=== PATIENT | male | born 1945 | race Caucasian/White ===

== ENCOUNTER 2019-08-12 14:25 | Emergency (ER) | payer MEDICARE, OTHER, SELFPAY ==
[2019-08-12 14:40] VITALS: BP 169/86; PULSE 88; RESP 16; TEMP 36.6; O2SAT 97
[2019-08-12 14:57] LABS: Basophils Percent Auto 0.4 % (0.2-1.2); Eosinophils Absolute Auto 0.1 K/mm3 (0-0.3); Eosinophils Percent Auto 1.5 % (0-4.4); Hematocrit 38.3 % (42.0-52.0); Immature Granulocyte Absolute 0.03 K/mm3 (0.00-0.031); Immature Granulocyte Percent A 0.4 % (0-0.5); Lymphocytes Absolute Auto 2.11 K/mm3 (0.9-3.2); Lymphocytes Percent Auto 27.1 % (18.3-44.2); Mean Corpuscular HGB Conc 33.9 g/dl (32-36); Mean Corpuscular Hemoglobin 31.9 pg (26-34); Mean Corpuscular Volume 93.9 fl (80-100); Mean Platelet Volume 9.5 fl (7.4-10.4); Monocytes Absolute Auto 0.7 K/mm3 (0.1-0.6); Monocytes Percent Auto 8.4 % (2.6-8.5); Neutrophils Absolute Auto 4.8 K/mm3 (1.3-6.7); Neutrophils Percent Auto 62.2 % (45.5-73.1); Platelet Count Result 287 k/mm3 (150-375); Red Blood Count 4.08 M/mm3 (4.6-6.20); Red Cell Distribution Width 12.4 % (11.5-14.5); White Blood Count 7.8 K/mm3 (4.5-10.0)
[2019-08-12 15:14] LABS: Alanine Aminotransferase 20 U/L (4-50); Albumin Level 4.6 g/dL (3.5-5.1); Alkaline Phosphatase 110 U/L (38-126); Aspartate Amino Transferase 26 U/L (17-59); Bilirubin,Total 0.3 mg/dL (0.2-1.3); Blood Urea Nitrogen 42 mg/dL (9-20); Calcium 10.1 mg/dL (8.4-10.2); Carbon Dioxide 21 mmol/L (22-30); Chloride 105 mmol/L (98-107); Estimated CRCL calculation 35 ml/min; Estimated Glomerular Filt Rate 43; Glucose 113 mg/dL (75-110); Potassium 5.1 mmol/L (3.4-5.0); Sodium 136 mmol/L (137-145)
--- NOTE | 2019-08-12 15:44 | ED.GENADULT ---
HPI - General Adult General Chief complaint: Unspecified Stated complaint: neck pain/dizziness w/standing [id number] Time Seen by Provider: 08/12/19 15:32 History of Present Illness HPI narrative: Pain in the back of the neck radiating into the head for at least 1 month. Told that he had arthritis. Not getting any better. tired to see his PCP, but they are not takig appointments right now. Additionally c/o light headedness when he bends over then stands up agian. No syncope. No chest pain, no alpitations. Related Data Allergies Allergy/AdvReac Type Severity Reaction Status Date / Time No Known Drug Allergies Allergy Verified 09/30/12 12:10 Review of Systems Review of Systems: All systems reviewed & are unremarkable except as noted in HPI and below Constitutional: Constitutional: Denies fever(s) Cardiovascular: Cardiovascular: Denies chest pain Respiratory: Respiratory: Denies dyspnea Gastrointestinal: Gastrointestinal: Denies abdominal pain, Denies nausea and Denies vomiting Musculoskeletal: Musculoskeletal: Denies back pain Neurologic: Reports dizziness, Denies syncope, Reports headache(s), Denies numbness and Denies weakness Exam Const: General: healthy appearing, no acute distress and alert Orientation/consciousness: patient oriented x3 HENMT: Head: normal to inspection Neck: Neck: normal visual inspection and no lymphadenopathy Chest: Chest palpation & inspection: no tenderness Resp: Effort & Inspection: normal respiratory effort Auscultation: clear to auscultation bilaterally, no rales, no rhonchi and no wheezes Cardio: Jugular venous distension: no JVD Rate: regular rate Rhythm: regular rhythm Heart sounds: no murmurs GI: Inspection: non-distended GI Palp: Yes Soft to palpation and No Tenderness to palpation present (GI) Skin: General skin exam: normal color Neuro: General: patient oriented x3 and moves all extremities Speech: normal speech Extrem: General: no edema Psych: Appearance: well kempt Affect: normal affect Course Vital Signs Vital signs: Vital Signs Temperature 36.6 C 08/12/19 14:40 Pulse Rate 88 08/12/19 14:40 Respiratory Rate 16 08/12/19 14:40 Blood Pressure 169/86 H 08/12/19 14:40 Pulse Oximetry 97 08/12/19 14:40 Temperature 36.6 C 08/12/19 14:40 Pulse Rate 71 08/12/19 17:16 Respiratory Rate 19 08/12/19 17:16 Blood Pressure 143/65 H 08/12/19 17:16 Pulse Oximetry 100 08/12/19 17:16 Medical Decision Making MDM Narrative Medical decision making narrative: Creatine elevated. could support dehydration as a cause of dizziness. Orthostatics normal. Will start on flexeril for neck pain and have him follow-up Medical Records Medical records reviewed: Yes I reviewed the patient's medical records. Vital Signs Vital Signs: Vital Signs Temperature 36.6 C 08/12/19 14:40 Pulse Rate 88 08/12/19 14:40 Respiratory Rate 16 08/12/19 14:40 Blood Pressure 169/86 H 08/12/19 14:40 Pulse Oximetry 97 08/12/19 14:40 Temperature 36.6 C 08/12/19 14:40 Pulse Rate 71 08/12/19 17:16 Respiratory Rate 19 08/12/19 17:16 Blood Pressure 143/65 H 08/12/19 17:16 Pulse Oximetry 100 08/12/19 17:16 Lab Data Lab results reviewed: Yes I reviewed the patient's lab results. Result diagrams: 08/12/19 14:50 08/12/19 14:50 Labs: Lab Results 08/12/19 08/12/19 08/12/19 Range/Units 14:50 14:50 17:12 WBC 7.8 (4.5-10.0) K/mm3 RBC 4.08 L (4.6-6.20) M/mm3 Hgb 13.0 L (14.0-18.0) g/dL Hct 38.3 L (42.0-52.0) % MCV 93.9 (80-100) fl MCH 31.9 (26-34) pg MCHC 33.9 (32-36) g/dl RDW 12.4 (11.5-14.5) % Plt Count 287 (150-375) k/mm3 MPV 9.5 (7.4-10.4) fl Immature Gran % (Auto) 0.4 (0-0.5) % Neut % (Auto) 62.2 (45.5-73.1) % Lymph % (Auto) 27.1 (18.3-44.2) % Crosby % (Auto) 8.4 (2.6-8.5) % Eos % (Auto) 1.5 (0-4.4) % Baso % (Auto) 0.4 (0.2-1.
[2019-08-12 15:46] VITALS: BP 161/84; PULSE 68; PULSE 84; RESP 18; O2SAT 98
[2019-08-12 15:47] VITALS: BP 150/86; BP 161/84; BP 184/79; PULSE 74; PULSE 78; PULSE 82
[2019-08-12 17:16] VITALS: BP 143/65; PULSE 71; RESP 19; O2SAT 100
[2019-08-12 17:27] LABS: Add Urine Microscopic? YES; Appearance Urine Clear (Clear); Bacteria Urine Trace /hpf; Bilirubin Urine Negative (Negative); Blood Urine Negative (Negative); Color Urine Yellow (Yellow); Glucose Urine UA Negative (Negative); Ketones Urine Negative (Negative); Leukocyte Esterase Ur Negative LEU/UL (Negative); Mucus Urine Rare /lpf; Nitrate Urine Negative (Negative); Protein Urine 2+ mg/dL (Negative); Specific Grav Ur 1.018 (1.001-1.035); Squamous Epithelial Cell Urine Rare /hpf (Few); Urobilinogen Urine Negative mg/dL (<2.0); WBC Urine 0-3 /hpf
== END 2019-08-12 17:33 | disposition home or self-care (01) ==
PROVIDERS: Emergency Provider Emergency Medicine
DX: M54.2 Cervicalgia (principal); R55 Syncope and collapse
CPT/HCPCS: 36415; 80053; 81001; 85025; 99283

== ENCOUNTER 2019-12-27 14:16 | Emergency (ER) | payer OTHER, MEDICARE, SELFPAY ==
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
[2019-12-27 14:18] VITALS: BP 125/56; PULSE 89; RESP 18; TEMP 35.6; O2SAT 98
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
== END 2019-12-27 17:02 | disposition home or self-care (01) ==
PROVIDERS: Emergency Provider Emergency Medicine
DX: S16.1XXA Strain of muscle, fascia and tendon at neck level, initial encounter (principal); S20.213A Contusion of bilateral front wall of thorax, initial encounter; M47.812 Spondylosis without myelopathy or radiculopathy, cervical region; E11.9 Type 2 diabetes mellitus without complications; V49.40XA Driver injured in collision with unspecified motor vehicles in traffic accident, initial encounter
CPT/HCPCS: 71046; 71120; 72125; 99284

== ENCOUNTER 2021-11-15 16:52 | Observation (INO) | payer MEDICARE, OTHER, SELFPAY ==
[2021-11-15] VITALS (8 sets, daily range): BP systolic 130–153; BP diastolic 67–82; PULSE 65–94; RESP 16–18; TEMP 36.1–36.8; O2SAT 97–100; BMI 27.1
--- NOTE | ~2021-11-15 | XR_ITS ---
EXAMINATION: XR chest 2V DATE: 11/15/2021 18:06 INDICATION: Chest pain TECHNIQUE: PA and lateral views of the chest were obtained. COMPARISON: Chest radiograph dated 01/06/2020 FINDINGS: Calcified nodules at the left upper and right lower lung zones. No other airspace opacities, pulmonar y edema, pleural effusion or pneumothorax. The cardiomediastinal silhouette is normal. Mild thoracic spondylosis. IMPRESSION: 1. No acute cardiopulmonary disease. Reviewed, dictated and finalized at location A.
--- NOTE | ~2021-11-15 | CT_ITS ---
EXAMINATION: CT brain wo con DATE: 11/15/2021 19:19 INDICATION: Dizziness and vision in the right eye TECHNIQUE: Computed tomography (CT) of the head was performed without intravenous contrast. Sagittal and coronal reconstructions were performed. The mA was adjusted according to patient size. Iterative reconstruction technique was employed. The dose-length product was 605.33 mGy-cm. COMPARISON: None FINDINGS: No acute intracranial hemorrhage, acute infarction or abnormal extra axial fluid collection. There is mild scattered white matter hypoattenuation consistent with chronic small vessel ischemic disease. S ymmetric pattern of distribution and calcific lesions in the bilateral basal ganglia. Symmetric promi nence of the sulci consistent with mild age-appropriate diffuse cerebral volume loss. Ventricles are normal and symmetric. No mass/mass effect. Intracranial calcified cerebral atherosclerosis is noted. The orbits, paranasal sinuses and mastoid air cells are normal. IMPRESSION: 1. No acute intracranial process. 2. Age-related changes including mild diffuse volume loss, mild scattered white matter hypoattenuatio n consistent with chronic small vessel ischemic disease and mild dystrophic calcifications at the lor ateral basal ganglia. Reviewed, dictated and finalized at location A. IMPRESSION: 1. No acute intracranial process. 2. Age-related changes including mild diffuse volume loss, mild scattered white matter hypoattenuation consistent with chronic small vessel ischemic disease a nd mild dystrophic calcifications at the bilateral basal ganglia.
--- NOTE | 2021-11-15 17:08 | ECG_ITS ---
Measurements Intervals [place] Rate: 81 P: 1 AK: 155 QRS: -63 QRSD: 158 T: 6 QT: 383 QTc: 446 Interpretive Statements SINUS RHYTHM ATRIAL PREMATURE COMPLEXES RIGHT BUNDLE BRANCH BLOCK LEFT ANTERIOR FASCICULAR BLOCK BASELINE ARTIFACT- I, AVR, AVL, AVF ABNORMAL ECG NO PREVIOUS ECG AVAILABLE FOR COMPARISON Electronically Signed On 11-15-2021 20:10:44 CDT by Anuj Cornell D.O.
[2021-11-15 17:26] LABS: Basophils Percent Auto 0.3 % (0.2-1.2); Eosinophils Absolute Auto 0.1 K/mm3 (0-0.3); Eosinophils Percent Auto 1.6 % (0-4.4); Hematocrit 32.4 % (42.0-52.0); Hemoglobin 10.8 g/dL (14.0-18.0); Immature Granulocyte Absolute 0.01 K/mm3 (0.00-0.031); Immature Granulocyte Percent A 0.2 % (0-0.5); Lymphocytes Absolute Auto 1.59 K/mm3 (0.9-3.2); Lymphocytes Percent Auto 26.2 % (18.3-44.2); Mean Corpuscular HGB Conc 33.3 g/dl (32-36); Mean Corpuscular Hemoglobin 32.9 pg (26-34); Mean Corpuscular Volume 98.8 fl (80-100); Monocytes Absolute Auto 0.5 K/mm3 (0.1-0.6); Monocytes Percent Auto 7.6 % (2.6-8.5); Neutrophils Absolute Auto 3.9 K/mm3 (1.3-6.7); Neutrophils Percent Auto 64.1 % (45.5-73.1); Platelet Count Result 275 k/mm3 (150-375); Red Blood Count 3.28 M/mm3 (4.6-6.20); Red Cell Distribution Width 12.3 % (11.5-14.5); White Blood Count 6.1 K/mm3 (4.5-10.0)
[2021-11-15 17:33] LABS: Prothrombin Time 12.9 Seconds (11.1-14.7)
[2021-11-15 17:34] LABS: Alanine Aminotransferase 25 U/L (6-50); Albumin Level 4.2 g/dL (3.5-5.1); Alkaline Phosphatase 99 U/L (38-126); Anion Gap 10 mmol/L (8-16); Aspartate Amino Transferase 27 U/L (17-59); Bilirubin,Total 0.3 mg/dL (0.2-1.3); Blood Urea Nitrogen 38 mg/dL (9-20); Calcium 9.4 mg/dL (8.4-10.2); Carbon Dioxide 23 mmol/L (22-30); Chloride 104 mmol/L (98-107); Estimated CRCL calculation 30 ml/min; Estimated Glomerular Filt Rate 37; Glucose 177 mg/dL (65-110); Lipase 82 U/L (23-300); Potassium 4.5 mmol/L (3.4-5.0); Sodium 137 mmol/L (137-145)
[2021-11-15 17:53] LABS: Troponin I < 0.012 ng/mL (0.000-0.034)
--- NOTE | 2021-11-15 19:10 | ED.GENADULT ---
HPI - General Adult General Chief complaint: Unspecified Stated complaint: R EYE BLURRY X WEEKS Time Seen by Provider: 11/15/21 19:06 Source: RN notes reviewed History of Present Illness HPI narrative: Patient presents emergency department from home for blurred vision. Patient states he has had blurred vision in his right eye for approximately 1 month he states he has had blurred vision total for over 14 years in his right eye but is been worse over the past month he states that blurred vision seems to be worse around the time that he eats and improves later on after he is not eating he states that this evening he was watching a TV commercial and he was recently started on his Ozempic and is said that a side effect of the medication could be blurred vision he called his PCP who told him to go to the emergency department for further evaluation the patient states he receives all of his care at the [facility] including seeing an kettle loader at the [place] who he last saw 2 months ago but is not seen over the past months for his blurry vision he states he does have glasses he supposed to wear but has not been wearing his glasses he denies any unilateral numbness or tingling he denies any pain in the right eye he states that he does have blurred vision in the left eye as well but is worse in the right. In review of systems with the patient's he does note that he has had some intermittent chest tightness which she states that he has been having over the past week the pain is located midsternal chest and described as a tightness in nature does not radiate denies any shortness of breath Related Data Home Medications Medication Instructions Recorded Confirmed glipizide 10 mg tablet 10 mg PO BID 11/15/21 lisinopril 10 1 tablet PO DAILY 11/15/21 mg-hydrochlorothiazide 12.5 mg tablet metformin 500 mg tablet 500 mg PO BID 11/15/21 semaglutide 0.25 mg or 0.5 mg (2 0.5 mg subcut WEEKLY 11/15/21 mg/1.5 mL) subcutaneous pen injector (Ozempic) Allergies Allergy/AdvReac Type Severity Reaction Status Date / Time No Known Drug Allergies Allergy Verified 04/19/21 17:00 Review of Systems Review of Systems: Gen.: Denies fevers or chills Eyes: See HPI ENT: Denies congestion Respiratory: Denies shortness of breath or cough CV: Reports chest tightness GI: Denies abdominal pain nausea, emesis or diarrhea Musculoskeletal: Denies back pain or muscle pain Neuro: Denies numbness, tingling, weakness or focal weakness Skin: Denies rash Except as documented, all other systems reviewed and negative [facility] Past Medical History Medical History Diabetes mellitus Social History Social History Smoking status: Never smoker Exam Narrative: APPEARANCE: No acute distress, nontoxic, resting in bed HEENT: Normocephalic, atraumatic, OMM, TMs clear bilaterally EYES: PERRL, EOMI no conjunctival erythema no papilledema NECK: Supple, nontender, full range of motion without pain, no meningismus RESPIRATORY: No respiratory distress, clear to auscultation bilaterally with no rhonchi wheezing or rales CARDIOVASCULAR: RRR s murmur ABDOMINAL: Soft, nontender, nondistended MUSCULOSKELETAL: Moves all extremities. No clubbing, cyanosis or edema. NEURO: A and O ?3, following commands, speech normal, no facial droop,muscle strength 5 out of 5 bilateral upper and lower extremities SKIN:: Warm, dry. Normal Color PSYCHIATRIC: Normal affect/mood Course Course Emergency Course: Discussed with Dr. Dillard presentation work-up agrees with admission Discussed with patient and family results of workup and diagnosis. Discussed need for admission. Patient and family understand and agree to current treatment plan discussed with patient his vision changes need to follow-up with his PCP to discuss possible change in medications Vital Signs Vital signs: Vital Signs Tem
[2021-11-15 20:29] LABS: Troponin I 0.019 ng/mL (0.000-0.034)
[2021-11-15 21:37] LABS: SARS-CoV-2 RNA PCR Negative
[2021-11-15] MEDS: ASPIRIN 81 MG CHEWABLE TABLET 324 MG PO (21:38)
--- NOTE | 2021-11-15 23:17 | ADMGEN ---
This patient, Renaldo Tsang, was admitted to IMU Room 201-01 at 2317. Patient/family oriented to hospital policies and general routines including ID bracelet, bed and alarms, visiting hours, pain management, procedures, bathroom and other care routines, personal items, smoking policy, room service/diet, and visiting hours. Information on how to activate the Rapid Response Team has been discussed. Patient/Family are encouraged to report perceived risks to care and to ask questions if they do not understand what they are told or what they should do.
--- NOTE | 2021-11-15 23:35 | ADMGEN ---
This patient, Renaldo Tsang, was admitted to IMU Room 201-01. Patient/family oriented to hospital policies and general routines including ID bracelet, bed and alarms, visiting hours, pain management, procedures, bathroom and other care routines, personal items, smoking policy, room service/diet, and visiting hours. Information on how to activate the Rapid Response Team has been discussed. Patient/Family are encouraged to report perceived risks to care and to ask questions if they do not understand what they are told or what they should do.
[2021-11-16] VITALS: PULSE 66
[2021-11-16 01:10] LABS: Troponin I 0.015 ng/mL (0.000-0.034)
[2021-11-16 02:00] VITALS: PULSE 62
[2021-11-16 04:00] VITALS: BP 131/63; PULSE 63; PULSE 67; RESP 18; TEMP 36.4; O2SAT 100; O2SAT 99
[2021-11-16 05:12] LABS: Basophils Percent Auto 0.5 % (0.2-1.2); Eosinophils Absolute Auto 0.2 K/mm3 (0-0.3); Eosinophils Percent Auto 2.8 % (0-4.4); Hematocrit 33.1 % (42.0-52.0); Hemoglobin 11.2 g/dL (14.0-18.0); Immature Granulocyte Absolute 0.02 K/mm3 (0.00-0.031); Immature Granulocyte Percent A 0.3 % (0-0.5); Lymphocytes Absolute Auto 2.02 K/mm3 (0.9-3.2); Lymphocytes Percent Auto 32.8 % (18.3-44.2); Mean Corpuscular HGB Conc 33.8 g/dl (32-36); Mean Corpuscular Hemoglobin 33.2 pg (26-34); Mean Corpuscular Volume 98.2 fl (80-100); Mean Platelet Volume 9.2 fl (7.4-10.4); Monocytes Absolute Auto 0.7 K/mm3 (0.1-0.6); Monocytes Percent Auto 10.7 % (2.6-8.5); Neutrophils Absolute Auto 3.3 K/mm3 (1.3-6.7); Neutrophils Percent Auto 52.9 % (45.5-73.1); Platelet Count Result 278 k/mm3 (150-375); Red Blood Count 3.37 M/mm3 (4.6-6.20); Red Cell Distribution Width 12.2 % (11.5-14.5); White Blood Count 6.2 K/mm3 (4.5-10.0)
[2021-11-16 05:27] LABS: Alanine Aminotransferase 21 U/L (6-50); Alkaline Phosphatase 78 U/L (38-126); Anion Gap 10 mmol/L (8-16); Aspartate Amino Transferase 23 U/L (17-59); Bilirubin,Total 0.3 mg/dL (0.2-1.3); Blood Urea Nitrogen 36 mg/dL (9-20); Calcium 9.5 mg/dL (8.4-10.2); Carbon Dioxide 27 mmol/L (22-30); Chloride 102 mmol/L (98-107); Estimated CRCL calculation 34 ml/min; Estimated Glomerular Filt Rate 42; Glucose 123 mg/dL (65-110); Potassium 4.2 mmol/L (3.4-5.0); Sodium 139 mmol/L (137-145)
[2021-11-16 06:00] VITALS: PULSE 65
--- NOTE | 2021-11-16 06:59 | PM.SD2 ---
Same Day Admit/Disch: HPI History of Present Illness Chief complaint: Blurred vision Narrative: Renaldo Tsang is a 76 year old male with a past medical history type 2 diabetes mellitus, hypertension and chronic kidney disease who presented to the ER with complaints of blurred vision. The patient has had blurred vision for 14 years. Vision had worsened over the last 2 months after he had started Ozempic. He saw [employer] commercial about Ozempic in stated that if he was having increased blurred vision that he should contact his healthcare provider. He called his primary care provider at the [facility] who instructed him to come to the ER for evaluation. Better his blurred vision gets worse around the time he eats in improves later after he is not eating. He has had carotid studies performed by his public relations intern that were negative for evidence of occlusion. He cell of public relations intern 2 or 3 months ago and had no evidence of diabetic retinopathy. He has a follow-up appointment with his public relations intern next week. He is also supposed to wear glasses. He states that it his vision has not improved despite new glasses every year for the last 14 years. So he does not wear his glasses unless he is driving. While in the ER the patient stated that he was having some intermittent chest tightness when the physician asked him about review of systems. The patient reports that the pain is not really tightness but is more of just a discomfort. It usually lasts less than 2 or 3 minutes. 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 The pain has no relieving factors. It is central in nature at and radiates across the chest. It does not radiate up the neck or down the arms. She denies any associated nausea, shortness of breath, palpitations. He has not noticed any orthopnea or paroxysmal nocturnal dyspnea. In fact he walks 3 miles a day without associated shortness of breath or chest pain. His pain is not reproducible to palpation. In the ER his initial troponin was less than 0.012 with repeat troponin still within normal limits but delta troponin was elevated with repeat values of 0.019 and 0.015. EKG demonstrated premature atrial complexes and right bundle-branch block with left anterior fascicular block. The patient does not have a history of coronary artery disease. He reports that his last stress test was several years ago. He has not had a recurrence of a chest pain since he has been here. [facility] in after discussion of options of possible stress test today the patient states that he would rather go to [facility] and follow-up at the [facility] for stress test. As the patient has not had a recurrence of his chest pain and his 3rd set of troponin was flat I will comfortable discharging the patient home for follow-up with the [facility]. I have instructed the patient to call his primary care provider today to arrange follow-up and outpatient stress test. The patient was given instructions on when to return if he had recurrent chest pain, worsening chest pain, lightheadedness, dizziness, orthopnea, lower extremity swelling, or other concerning symptoms. [facility] Past Medical History Medical History (Updated 11/16/21 @ 07:31 by Priti Dillard DO) Chronic kidney disease, stage 3b Diabetes mellitus Diabetic peripheral neuropathy Essential hypertension Hepatic steatosis Shingles Surgical History Surgical History Normal colonoscopy Family History Family History Other Unknown family medical history Social History Social History (Updated 11/16/21 @ 07:39 by Priti Dillard DO) Social History: He has been for 53 years and they have 3 children. He is a lifelong nonsmoker. He drinks 2 to 3 times a week and drinks up to a bottle wine when he does drink. He denies any illicit subst
[2021-11-16 08:00] VITALS: BP 139/70; PULSE 59; RESP 12; TEMP 36.1; O2SAT 98
[2021-11-16 08:04] LABS: Glucose Point of Care 164 mg/dl (65-105)
== END 2021-11-16 09:12 | disposition home or self-care (01) ==
LOC: ANHED 21:43 → ANHIMU 22:57
PROVIDERS: Emergency Medicine; Admitting Provider Internal Medicine; Emergency Provider Emergency Medicine; Visit Provider Internal Medicine
DX: R07.9 Chest pain, unspecified (principal); H53.8 Other visual disturbances; E11.22 Type 2 diabetes mellitus with diabetic chronic kidney disease; I12.9 Hypertensive chronic kidney disease with stage 1 through stage 4 chronic kidney disease, or unspecified chronic kidney disease; N18.32 Chronic kidney disease, stage 3b; E11.319 Type 2 diabetes mellitus with unspecified diabetic retinopathy without macular edema; R39.198 Other difficulties with micturition; R91.8 Other nonspecific abnormal finding of lung field; M47.814 Spondylosis without myelopathy or radiculopathy, thoracic region; R90.82 White matter disease, unspecified; G23.8 Other specified degenerative diseases of basal ganglia; R01.1 Cardiac murmur, unspecified; K76.0 Fatty (change of) liver, not elsewhere classified; Z72.89 Other problems related to lifestyle; Z20.822 Contact with and (suspected) exposure to COVID-19; Z79.84 Long term (current) use of oral hypoglycemic drugs; Z79.899 Other long term (current) drug therapy
CPT/HCPCS: 36415; 70450; 71046; 80053; 82948; 83690; 84484; 85025; 85610; 85730; 93005; 99285; A9270; C9803; G0378; U0003; U0005